=== PATIENT | female | born 1995 | race Caucasian/White ===

== ENCOUNTER 2016-10-25 14:40 | Emergency (ER) | payer BC ==
[~2016-10-25] VITALS: Ht 165.1 cm; Wt 86.8 kg
[2016-10-25 14:47] VITALS: Ht 165.1 cm; Wt 86.8 kg
--- NOTE | 2016-10-25 15:38 | DIAGNOSTIC IMAGING REPORT ---
LEFT ANKLE 3 VIEWS HISTORY: left ankle injury COMPARISON: None. FINDINGS: There is no fracture or dislocation. Lateral soft tissue swelling. No radiopaque foreign bodies. IMPRESSION: No fractures. Electronically signed by: Akil Davila M.D. 10/25/2016 3:37 PM Dictated Date/Time: 10/25/2016 3:25 PM
--- NOTE | 2016-10-25 15:57 | EMERGENCY ROOM VISIT NOTE ---
ED Visit Note First contact with patient: 14:49 CHIEF COMPLAINT: Ankle pain HISTORY OF PRESENT ILLNESS: This 21-year-old female patient presents to the emergency department ambulatory after sustaining an injury to the left ankle and foot with a twisting, inversion motion last night while she was jumping up and down. The patient complains of pain along the outside of the ankle. The patient denies pain of the foot. The patient rates the pain as dull and 7/10. The patient is not able to bear weight on the foot. Constant pain, worse with movement, weight bearing, and the dependent position. No knee pain, the patient is able to move their toes. No numbness or weakness of the foot, no laceration. The patient has not had a previous fracture to this ankle. The patient has taken nothing for the pain. The patient denies any other injury. REVIEW OF SYSTEMS: A 6 system review of systems was completed with positives and pertinent negatives listed in the HPI. ALLERGIES: No known drug allergies MEDICATIONS: BCPs, Nexium PMH: No significant past medical history. SOCIAL HISTORY: The patient lives locally with family. Nonsmoker. PHYSICAL EXAM: Vital Signs: Reviewed Nurse's notes, vital signs stable. GENERAL : This is a 21-year-old female, no acute distress, but appears in pain, well- developed, well-nourished. MENTAL STATUS: Alert, oriented to person place and time, and cooperative. MUSCULOSKELETAL: The left ankle is swollen and tender over the lateral malleolus, but the skin is intact and there is no ligamentous instability. There is no fifth metatarsal tenderness. There is no tenderness over the rest of the foot. There is no calf or tibia/fibular tenderness. There is no visual deformity. The foot and toes are warm and well-perfused. Dorsalis pedis pulse 2+. Sensation to pain and light touch is intact. Capillary refill less than 2 seconds. RADIOGRAPHIC FINDINGS: LEFT ANKLE 3 VIEWS HISTORY: left ankle injury COMPARISON: None. FINDINGS: There is no fracture or dislocation. Lateral soft tissue swelling. No radiopaque foreign bodies. IMPRESSION: No fractures. EMERGENCY DEPARTMENT COURSE: I examined the patient. X-rays of the left ankle were reviewed by myself and read by radiology and reveal no acute findings. Gel ankle splint was applied to the ankle under my direction and the position was satisfactory. Neurovascular status was rechecked and intact. The patient was instructed on the use of crutches. The patient was discharged home in good condition. DIAGNOSIS: Left ankle injury Problem List Medical Problems: (1) Acid reflux Status: Chronic (2) Pneumonia Status: Resolved Current/Historical Medications Scheduled Control Pills ( Control Pills), 1 TAB PO DAILY Scheduled PRN Esomeprazole Magnesium (Nexium), 40 MG PO DAILY PRN for Dyspepsia Ibuprofen (Advil), 400 MG PO Q4H PRN for Pain Allergies Coded Allergies: No Known Allergies (Unverified , 06/20/14) Vital Signs Date Time Temp Pulse Resp B/P Pulse Ox O2 Delivery O2 Flow Rate FiO2 10/25/16 16:00 36.7 87 16 116/78 97 10/25/16 14:47 36.7 87 16 116/78 97 Room Air Departure Information Impression Primary Impression: Left ankle injury Dispostion Home / Self-Care Condition GOOD Referrals [facility] (PCP) Patient Instructions [facility] Additional Instructions You have been treated in the Emergency Department for an Ankle sprain. For pain control, you can use the following [id number] medicines (if >12 yo): - Regular strength (325mg/tab) Tylenol (acetaminophen) 2 tabs every 4-6 hours as needed. Do not exceed 12 tablets in a 24 hour period. Avoid taking more than 4 grams (4000 mg) of Tylenol per day. This includes any other sources of acetaminophen you may take on a regular basis. - Regular strength (200 mg/tab) Advil (ibuprofen) 1-2 tabs every 4-6 hours as needed. Do not exceed a dose of 3200 mg per day. If this is a recent injury (<24 hrs), ice can be applied to the area of pain for the first 3 days to help decrease pain and inflammation. Wear the splint and use the crutches to aid with walking until the swelling and pain have decreased. Follow-up with orthopedics or your primary care provider if symptoms do not improve in the next 5-6 days. Return to the Emergency Department if your current symptoms worsen despite treatment course outlined above, or if you develop any of the following symptoms : intractable pain despite aforementioned treatment course or new onset of numbness or tingling of the foot. Problem Qualifiers Primary Impression: Left ankle injury Encounter type: initial encounter Qualified Codes: S99.912A - Unspecified injury of left ankle, initial encounter
[2016-10-25 16:00] VITALS: BP 116/78; PULSE 87; TEMP 36.7; O2SAT 97
[2016-10-25] MEDS ORDERED: IBUP-1050 PO (18:37)
[2016-10-25] MEDS ORDERED: BCPILLS PO (18:37)
[2016-10-25] MEDS ORDERED: NXM/40 PO (18:37)
== END 2016-10-25 16:00 | disposition home or self-care (01) ==
LOC: C.EDB 14:42 → C.EDD 16:00
DX: S99.912A Unspecified injury of left ankle, initial encounter (principal); X50.9XXA Other and unspecified overexertion or strenuous movements or postures, initial encounter; K21.9 Gastro-esophageal reflux disease without esophagitis; Z87.01 Personal history of pneumonia (recurrent); Z79.3 Long term (current) use of hormonal contraceptives